=== PATIENT | male | born 1970 | race Caucasian/White ===

== ENCOUNTER 2017-11-30 06:56 | Day surgery (SDC) | payer OTHER ==
[2017-11-30] MEDS ORDERED: MIDAZOLAM 2 MG/2 ML SOL ONE (07:28)
[2017-11-30] MEDS ORDERED: ONDANSETRON HCL 4 MG/2 ML SOL ONE (07:28)
[2017-11-30] MEDS ORDERED: PROPOFOL 500 MG/50 ML EMU IV ONE (07:28)
[2017-11-30] MEDS ORDERED: LIDOCAINE HCL 1% MPF 30 SOL ONE (07:28)
[2017-11-30] MEDS ORDERED: FENTANYL 100MCG/2ML SOL ONE (07:28)
[2017-11-30] MEDS ORDERED: PROPOFOL 10 MG/ML EMU IV ONE ×2 (07:31→08:52)
[2017-11-30] MEDS ORDERED: LIDOCAINE HCL 2% MPF 10 ML SOL ONE (08:04)
[2017-11-30] MEDS: LIDOCAINE HCL 2% MPF 10 ML SOL ONE ×2 (08:40→08:48)
[2017-11-30] MEDS: BUPIVACAINE HCL 0.5% MPF 10 ML SOL ONE ×2 (08:40→08:48)
[2017-11-30 09:42] VITALS: BP 127/82; PULSE 65; RESP 18; TEMP 97.4; O2SAT 95
== END 2017-11-30 10:03 | disposition home or self-care (01) | DRG 74 ==
LOC: SURG 06:56
PROVIDERS: ATTEND Orthopaedic Surgery
DX: G56.03 Carpal tunnel syndrome, bilateral upper limbs (principal)
CPT/HCPCS: J2250; J2405; J3010; A6402; J2001; J2704